=== PATIENT | female | born 2000 | race American Indian/Alaskan Native ===

== ENCOUNTER 2021-11-07 02:14 | Emergency (ER) | payer SELFPAY ==
[2021-11-07 02:25] VITALS: BP 136/87
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
== END 2021-11-07 02:50 | disposition home or self-care (01) ==
LOC: ED 02:14 → EEVIPCON 02:14 → ED 02:50
DX: T76.21XA Adult sexual abuse, suspected, initial encounter (principal)
CPT/HCPCS: 99282